=== PATIENT | male | born 1985 | race Caucasian/White ===

== ENCOUNTER 2016-07-09 14:55 | Emergency (ER) | payer OTHER ==
[~2016-07-09] VITALS: Ht 185.4 cm; Wt 96.4 kg
[~2016-07-09 14:55] MED LIST: HYDR-4003 PO
[2016-07-09 15:02] VITALS: BP 128/89; PULSE 64; RESP 16; O2SAT 99
[2016-07-09 15:57] LABS: BASOPHILS % (AUTO) 0.3 % (0-3); EOSINOPHILS % (AUTO) 0.3 % (0-5); MONOCYTES % (AUTO) 6.7 % (4-12); Mean Corpuscular Hemoglobin 29.8 pg (27.0-35.0); Mean Corpuscular Volume 83.8 fL (81-100); NEUTROPHILS % (AUTO) 69.8 % (40-74); Platelet Count 273 bil/L (150-400)
[2016-07-09 16:20] LABS: Magnesium 2.3 mg/dL (1.6-2.6)
--- NOTE | 2016-07-09 16:35 | ED.REPORT ---
HPI-General Illness Date of Service July 09, 2016 ED Provider: Dr. Damon 31 y/o male with a hx of scoliosis presents to the ED complaining of malaise, onset this morning. The pt was in [place] 5 days ago where he was found facedown in a parking lot and was given CPR. He was kept overnight and treated for dehydration and heat stroke at a hospital there. The pt reports he had been outside for approximately 11 hours but was taking fluids all day. He states he remembers everything going blank and then finding himself in the hospital. He can't recall what happened prior to his arrival to the ED in [place]. 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 Since returning to [place] yesterday, pt reports feeling hot, intermittent blurry vision, intermittent nausea, pressure behind his eyes, subjective fever and myalgia. He states he is experiencing cold intolerance. As per the mother, he was also complaining of flu-like sx this morning. Nursing Notes Stated Complaint: POSSIBLE SUN POISONING Chief Complaint: General Complaint Nursing Notes Reviewed: Yes Allergies: Coded Allergies: codeine (Verified Allergy, Unknown, 07/09/16) tramadol (Verified Allergy, Unknown, 07/09/16) Scheduled PRN Hydrocodone-Acetaminophen 5-325 mg (Hydrocodone-Acetaminophen 5-325 mg) 1 Each Tablet 1-2 TABLET PO Q4H PRN PRN For Pain General Time Seen by MD: 16:35 Chief Complaint Not feeling well Hx Obtained From: Patient Arrived By: Walk-in Sudden in Onset?: No Onset Occurred: Yesterday Symptom Duration: Since onset Severity: Current: No pain currently Severity: Maximum: No pain Recent Healthcare: Recent doctor visit Similar Sx Previous: No Past Medical History Past Medical History Scoliosis Past Surgical History None reported Smoking History Current Every Day Smoker Social History Alcohol Use: Denies alcohol use Drug Use: In recovery (Over a year) Other Social History: Good social support Ambulatory Status Independent Review of Systems Reports: Pressure behind his eyes Full Review of Systems Constitutional: Reports: Chills, Fever, Malaise GI: Reports: Nausea, Denies: Vomiting Skin: Reports Diaphoresis Neurologic: Reports: Vision change Complete sys rev & neg: except as marked. Physical Exam Vital Signs Vital Signs Date Time Temp Pulse Resp B/P Pulse Ox O2 Delivery O2 Flow Rate FiO2 07/09/16 15:02 36.7 64 16 128/89 99 Room Air Initial VS: Reviewed Head / Eyes: Atraumatic, Normocephalic, PERRL ENT: Mucous membranes moist, Conjunctiva normal, No scleral icterus Neck: Supple, Non-tender, Full range of motion Respiratory: Breath sounds normal, Clear to auscultation, No respiratory distress Cardiovascular: Regular rate & rhythm, Heart sounds normal, Intact distal pulses Abdomen / GI: Soft, Non-tender, No guarding, No rebound, No distention Extremities: Vascular intact, Neuro intact, No swelling, No tenderness Skin: Warm, Dry, No cyanosis Neurologic: Alert, Oriented, Nonfocal Psychiatric: Mood/affect normal, Behavior normal, Normal thought content General/Constitutional: Awake, Alert, No acute distress, Well appearing, Cooperative Skin: Atraumatic, Warm, Dry Moderate sunburn without blistering over the neck and shoulders. Interpretation & Diagnostics Lab Results Interpretation Result Diagram: 07/09/16 1535 07/09/16 1535 Test 07/09/16 15:35 07/09/16 15:54 White Blood Count 9.6th/mm3 (3.8-10.1) Red Blood Count 5.37mil/mm3 (4.40-5.80) Hemoglobin 16.0g/dL (13.8-17.2) Hematocrit 45.0% (41.0-50.0) Mean Corpuscular Volume 83.8fL (81-100) Mean Corpuscular Hemoglobin 29.8pg (27.0-35.0) Mean Corpuscular Hemoglobin Concent 35.6% (32.0-37.0) Red Cell Distribution Width 13.2% (12.3-15.4) Platelet Count 273bil/L (150-400) Neutrophils (%) (Auto) 69.8% (40-74) Lymphocytes (%) (Auto) 22.6% (14-46) Monocytes (%) (Auto) 6.7% (4-12) Eosinophils (%) (Auto) 0.3% (0-5) Basophils (%) (Auto) 0.3% (0-3) Sodium Level 144mEq/L (134-144) Potassium Level 4.0mEq/L (3.5-5.2) Chloride Level 106mEq/L (97-108) Carbon Dioxide Level 24mmol/L (18-29) Blood Urea Nitrogen 4mg/dL (6-20) Creatinine 0.77mg/dL (0.76-1.27) Estimat Glomerular Filtration Rate 125mL/min (>59) Glucose Level 95mg/dL (60-99) Calcium Level 9.5mg/dL (8.5-10.1) Magnesium Level 2.3mg/dL (1.6-2.6) Total Bilirubin 1.1mg/dL (0.0-1.2) Aspartate Amino Transf (AST/SGOT) 30U/L (0-50) Alanine Aminotransferase (ALT/SGPT) 50U/L (0-44) Alkaline Phosphatase 70U/L (25-150) Total Protein 7.5g/dL (6.4-8.4) Albumin 4.5g/dL (3.4-5.0) Lipase 55U/L (13-60) Hold George Top Tube Received (Received) Re-Eval/Medical Decision Time of Eval: 16:45 Re-Evaluation/Progress Note: Rechecked pt. Discussed lab results and diagnosis. Informed the pt of the plan to discharge. Pt understands and agrees with plan. F/U instructions and RTER warning given. All questions addressed. Counseled Regarding: Diagnosis, Lab results, Need for follow-up, When/why to return to ED Discharge & Departure Primary Impression: Fatigue Fatigue type: other Qualified Code: R53.83 - Other fatigue Disposition: Home Discharge Condition All VS Reviewed: Yes Condition: Stable Additional Instructions: Your labs were reassuring. Drink plenty of fluids, especially if your urine is dark yellow. I suspect your symptoms are still a result of your body recovering from the sunstroke and the sun burn. Time should help, likely more than anything I can do. I hope you feel better within a few days. Thank you for letting me take care of you today. Referrals: OTHER,PHYSICIAN (PCP) (Family) Scribe Attestation Portions of this note were transcribed by Lan Roper. I, , personally performed the history, physical exam and medical decision-making;I reviewed and confirmed the accuracy of the information in the transcribed note. Signed by Liliana Cabezas. 07/09/16 1728 Jael Damon MD July 09, 2016 16:35 Lan Roper July 09, 2016 16:54
[2016-07-09 17:29] VITALS: BP 136/82; PULSE 75; RESP 14; O2SAT 100
== END 2016-07-09 17:30 | disposition home or self-care (01) ==
LOC: SED 14:55
DX: R53.83 Other fatigue (principal); F17.200 Nicotine dependence, unspecified, uncomplicated; Z88.5 Allergy status to narcotic agent; Z88.8 Allergy status to other drugs, medicaments and biological substances

== ENCOUNTER 2016-08-05 14:18 | Emergency (ER) | payer OTHER ==
[~2016-08-05] VITALS: Ht 185.4 cm; Wt 93.1 kg
[2016-08-05 14:20] VITALS: BP 141/95; PULSE 94; RESP 16; O2SAT 98
--- NOTE | 2016-08-05 15:19 | ED.REPORT ---
HPI-Neck Pain Free Text HPI Notes Aug 05, 2016 ED Provider: Jael Damon MD Pt is a 31 y/o male presenting to the ED c/o neck pain onset yesterday. 2 days ago, the patient was working outside and spent the day doing heavy lifting and exercise. Yesterday, the patient was lying down and tried to move and experienced a stiff painful neck with radiation to the shoulders. He has been trying Ibuprofen and range of motion exercises without much relief so he decided to be seen. Pt denies fever, chills, nausea, vomiting, headache. Nursing Notes Stated Complaint: NECK AND SHOULDER PAIN Chief Complaint: General Complaint Nursing Notes Reviewed: Yes Allergies: Coded Allergies: codeine (Verified Allergy, Unknown, 08/05/16) tramadol (Verified Allergy, Unknown, 08/05/16) Uncoded Allergies: PENICILLIN (Allergy, Intermediate, emesis, 08/05/16) Scheduled PRN Diazepam (Diazepam) 5 Mg Tablet 5 MG PO TID PRN PRN muscle spasm Hydrocodone-Acetaminophen 5-325 mg (Hydrocodone-Acetaminophen 5-325 mg) 1 Each Tablet 1-2 TABLET PO Q4H PRN PRN For Pain Naproxen (Naproxen) 500 Mg Tab 500 MG PO BID PRN PRN For Pain oxyCODONE-Acetaminophen 5-325 mg (oxyCODONE-Acetaminophen 5-325 mg) 1 Each Tablet 1 TAB PO Q4H PRN PRN For Pain General Time Seen by Provider: 15:21 Chief Complaint Neck pain Hx Obtained From: Patient Arrived By: Walk-in Sudden in Onset?: Yes Onset Occurred: Yesterday Symptom Duration: Since onset Progression Since Onset: Constant Caused by: Twisting / turning neck Quality: Painful Severity: Current: Moderate Severity: Maximum: Moderate Recent Healthcare: No recent doctor visit, No recent hospitalization Similar Sx Previous: No Past Medical History Past Medical History Scoliosis Past Surgical History None reported Smoking History Current Every Day Smoker Social History Alcohol Use: Denies alcohol use Drug Use: In recovery Other Social History: Good social support Ambulatory Status Independent Review of Systems Constitutional: Denies: Chills, Fever Respiratory: Denies: Non-productive cough, Shortness of breath Cardiovascular: Denies: Chest pain, Dyspnea on exertion GI: Denies: Abdominal pain, Diarrhea, Nausea, Vomiting Musculoskeletal: Reports: Joint pain, Neck pain Neurologic: Denies: Headache, Lightheaded Complete sys rev & neg: except as marked. Physical Exam Initial Vital Signs Vital Signs (First) Date Time Temp Pulse Resp B/P Pulse Ox O2 Delivery O2 Flow Rate FiO2 08/05/16 14:20 36.8 94 16 141/95 98 Room Air Initial VS: Reviewed, Vital signs normal ENT: Mucous membranes moist, Conjunctiva normal, No scleral icterus Respiratory: Breath sounds normal, Clear to auscultation, No respiratory distress Cardiovascular: Regular rate & rhythm, Heart sounds normal, Intact distal pulses Abdomen / GI: Soft, Non-tender Extremities: Vascular intact, Neuro intact, No swelling, No tenderness Skin: Warm, Dry, No cyanosis Psychiatric: Mood/affect normal, Behavior normal, Normal thought content Neck: Atraumatic, Supple, No midline vertebral tend Bilateral trapezius spasm, increased on left Neurologic: Oriented X3, Speech NL, No motor deficits, No sensory deficits, CN II - XII intact, Cerebellar NL, Memory NL, Gait NL Arm sensation intact bilat Head / Eyes: Atraumatic, Normocephalic, PERRL, No photophobia Point tenderness about the occiput insertions bilaterally, increased on left Re-Eval/Medical Decision Re-Evaluation/Progress : Time of Eval: 16:14 Re-Evaluation/Progress Note: Pt rechecked. Able to move about much better now after treatment. Informed pt of plan for treatment. Pt understands and agrees with plan for treatment. F/U instructions and RTER warnings given. All questions addressed. Counseled Regarding: Diagnosis, Need for follow-up, When/why to return to ED Discharge & Departure Primary Impression: Acute strain of neck muscle Encounter type: initial encounter Qualified Code: S16.1XXA - Strain of muscle, fascia and tendon at neck level, initial encounter Disposition: Home Discharge Condition All VS Reviewed: Yes Condition: Stable Patient Instructions: Cervical Neck Strain Exercises (GEN) Additional Instructions: Your physical exam and history is consistent with a neck strain. See any evidence of acute cervical disc herniation. Use the soft collar to help with pain control. If it doesn't help then don't use it. Take Ibuprofen at least 3x a day for baseline pain control and Valium up to twice a day for muscle spasm. Take 1-2 Percocet every 6 hours as needed for severe breakthrough pain. You can expect the pain to be worse tomorrow. Return to the emergency department if you experience any new or worsening symptoms, specifically significant numbness of your arms. Follow-up with your primary care doctor next week if your symptoms persist. Thanks for coming back, but we really need to stop meeting in the ER like this;) Referrals: OTHER,PHYSICIAN (PCP) [facility] ED Scribe Statement Portions of this note were transcribed by uSnday Palomino. I, Dr. Damon personally performed the history, physical exam and medical decision-making; I reviewed and confirmed the accuracy of the information in the transcribed note. Signed by Liliana Srivastava, 08/05/16 - 1599 Jael Damon MD Aug 05, 2016 15:19 SUNDAY PALOMINO Aug 05, 2016 15:24
[2016-08-05] MEDS ORDERED: oxyCODONE-Acetamin 5-325 mg Tablet PO ONE (15:30)
[2016-08-05 16:35] VITALS: BP 135/88; PULSE 88; RESP 15; O2SAT 95
[2016-08-05] MEDS ORDERED: OXYC1TAB24 PO (16:35)
[2016-08-05] MEDS ORDERED: NPR500T PO (16:35)
[2016-08-05] MEDS ORDERED: DIAZ5TAB3 PO (16:35)
[2016-08-05 16:38] VITALS: BP 135/88; PULSE 88; RESP 15; O2SAT 95
== END 2016-08-05 16:38 | disposition home or self-care (01) ==
LOC: SED 14:18
DX: S16.1XXA Strain of muscle, fascia and tendon at neck level, initial encounter (principal); X50.0XXA Overexertion from strenuous movement or load, initial encounter; Y93.89 Activity, other specified; Y92.89 Other specified places as the place of occurrence of the external cause; Y99.8 Other external cause status; F17.200 Nicotine dependence, unspecified, uncomplicated; Z88.0 Allergy status to penicillin; Z88.5 Allergy status to narcotic agent; Z88.8 Allergy status to other drugs, medicaments and biological substances
CPT/HCPCS: 96372; 99283; J1885

== ENCOUNTER 2016-09-20 21:01 | Emergency (ER) | payer OTHER ==
[~2016-09-20 21:01] MED LIST changes: +DIAZ5TAB3 PO; +NPR500T PO; +OXYC1TAB24 PO
[2016-09-20 21:05] VITALS: BP 158/83; PULSE 94; RESP 20; O2SAT 100
--- NOTE | 2016-09-20 21:26 | ED.REPORT ---
HPI-Back Pain Under 40 Date of Service Sep 20, 2016 ED Provider: Dr. John Mak The pt is a 31 year old male who presents to the ED c/o increasingly severe mid back pain that radiates into his tailbone onset 4 days ago. He tore a muscle in his back a month ago and irritated the injury earlier this week. Pt takes Ibuprofen during the day and uses Flexeril to get to sleep. He reports associated weakness in legs. His doctor recommended he take less ibuprofen. Pt has tried physical therapy with no relief. Pt denies numbness, nausea, vomiting , bowel/bladder dysfunction, dizziness, headache, lightheadedness, incontinence or any other symptoms. Nursing Notes Stated Complaint: BACK PAIN Chief Complaint: Back Pain or Injury Nursing Notes Reviewed: Yes Allergies: Coded Allergies: codeine (Verified Allergy, Unknown, 09/20/16) tramadol (Verified Allergy, Unknown, 09/20/16) Uncoded Allergies: PENICILLIN (Allergy, Intermediate, emesis, 08/05/16) Scheduled PRN Diazepam (Diazepam) 5 Mg Tablet 5 MG PO TID PRN PRN muscle spasm Hydrocodone-Acetaminophen 5-325 mg (Hydrocodone-Acetaminophen 5-325 mg) 1 Each Tablet 1-2 TABLET PO Q4H PRN PRN For Pain Naproxen (Naproxen) 500 Mg Tab 500 MG PO BID PRN PRN For Pain oxyCODONE-Acetaminophen 5-325 mg (oxyCODONE-Acetaminophen 5-325 mg) 1 Each Tablet 1 TAB PO Q4H PRN PRN For Pain General Time Seen by MD: 21:25 Chief Complaint Back pain Hx Obtained From: Patient Arrived By: Walk-in Sudden in Onset?: Yes Onset Occurred: 4 days ago Symptom Duration: Since onset Caused by: Aggravated old injury Location: : Spinal lumbar area Quality: Painful Severity: Current: Severe Recent Healthcare: No recent doctor visit, No recent hospitalization Similar Sx Previous: Yes Past Medical History Past Medical History Scoliosis Past Surgical History None reported Smoking History Current Every Day Smoker Social History Alcohol Use: Denies alcohol use Drug Use: In recovery Other Social History: Good social support Ambulatory Status Independent Review of Systems Constitutional: Denies: Chills, Fever GI: Denies: Nausea, Vomiting Male: Denies Incontinence Musculoskeletal: Reports: Back pain, Denies: Extremity pain, Joint pain Neurologic: Reports: Weakness, Denies: Bladder dysfunction, Bowel dysfunction, Dizziness, Headache, Lightheaded, Numbness Complete sys rev & neg: except as marked. Physical Exam Initial Vital Signs Vital Signs (First) Date Time Temp Pulse Resp B/P Pulse Ox O2 Delivery O2 Flow Rate FiO2 09/20/16 21:05 36.7 94 20 158/83 100 Room Air Initial VS: Reviewed General/Constitutional: Awake, Alert, Cooperative Flank / Spine / Paraspinal: Positive: Lumbar spine tender... tender lumbar spine L3 L4 region neurovascularly intact Neurologic: Oriented X3, Speech NL, No motor deficits Lower Extremity / Pelvis / MS: Atraumatic, Full range of motion, No deformity Head / Eyes: Atraumatic, Normocephalic ENT: Atraumatic, Mucous membranes moist Upper Extremity / MS: Atraumatic, Full range of motion, No erythema Wrist / Hand: Atraumatic, Full range of motion, No deformity Ankle / Foot: Atraumatic, Full range of motion, No deformity Skin: Atraumatic, Color NL, No rash Interpretation & Diagnostics Interpretation & Diagnostics: LUMBAR SPINE X-RAY IMPRESSION: no acute abnormalities Re-Eval/Medical Decision Med Decision/Clinical Course Reassuring x-rays. Adequate pain control with Toradol. Short course of Naprosyn for moderate pain. Short course of short-acting opiate for severe pain. Routine opiate warnings given. Recommend close outpatient follow-up. Re-Evaluation/Progress : Time of Eval: 22:15 Re-Evaluation/Progress Note: Pt rechecked. Informed pt of normal x-ray results. Plan for discharge and follow up. Pt understands and agrees with plan. All questions addressed. Counseled Regarding: Diagnosis, Lab results, Need for follow-up, When/why to return to ED Discharge & Departure Impression: Primary Impression: Low back pain Chronicity: unspecified Back pain laterality: bilateral Sciatica presence: without sciatica Qualified Code: M54.5 - Low back pain Disposition: Home All VS Reviewed: Yes Condition: Stable Patient Instructions: Acute Low Back Pain (ED) Additional Instructions: Thank you for entrusting us with your care today. Your x-ray was reassuring. Take 1 Percocet every 6 hrs for pain and naproxen 2x/daily. Do not drive or drink alcohol while consuming Percocet. Follow up with primary care this week. Return to the Emergency Department if you experience any new or worsening symptoms. I hope you feel better soon! Referrals: OTHER,PHYSICIAN (PCP) Chuck Goodson MD Attestation Portion of this note were transcribed by Joann Vang. I, Dr. Mak, personally performed the history, physical exam, and medical decision-making: I reviewed and confirmed the accuracy for the information in the transcribed note. Signed by: rodolfo Cosby, 09/20/16 2200 copies to: OTHER,PHYSICIAN; Chuck Goodson MD, Todd P DO Sep 20, 2016 21:26 Joann Vang Sep 20, 2016 21:33
[2016-09-20] MEDS ORDERED: oxyCODONE-Acetamin 5-325 mg Tablet PO ONE (21:35)
[2016-09-20] MEDS ORDERED: _oxyCODONE/APAP 5-325 mg Tablet PO PRN (21:35)
[2016-09-20 22:35] VITALS: BP 146/91; PULSE 88; RESP 16; O2SAT 98
--- NOTE | 2016-09-21 11:52 | DRSVH ---
PROCEDURE: X-RAY LUMBAR SPINE, 2 OR 3 VIEW INDICATIONS: fall, L3 region pain and tender TECHNIQUE: 3 views of the lumbar spine were acquired. COMPARISON: None. FINDINGS: Bones: 5 [id number] vertebrae are present. There is normal bony alignment. No vertebral body c ompression fractures. No suspicious bony lesions. Trace spondylolisthesis L5-S1 with possible pars interarticularis defect. Soft tissues: Overlying bowel gas pattern is normal. No suspicious soft tissue calcifications. IMPRESSION: Trace spondylolisthesis at the L5-S1 level with possible pars interarticularis defect. I f indicated oblique views could be performed. Dictated by: Robbie CARRERO Interpreted: Sanjay Ellison MD on 09/21/2016 at 8:41 Approved by: Sanjay Ellison M.D. on 09/21/2016 at 11:50
== END 2016-09-20 22:35 | disposition home or self-care (01) ==
LOC: SED 21:01
DX: M54.5 Low back pain (principal); F17.200 Nicotine dependence, unspecified, uncomplicated; Z88.5 Allergy status to narcotic agent
CPT/HCPCS: 72100; 96372; 99284; J1885

== ENCOUNTER 2016-11-15 16:21 | Emergency (ER) | payer OTHER ==
[~2016-11-15] VITALS: Ht 188 cm; Wt 96.4 kg
[2016-11-15 16:24] VITALS: BP 134/79; PULSE 78; RESP 16; O2SAT 100
--- NOTE | 2016-11-15 17:09 | ED.REPORT ---
HPI-Extremity Problem Lower Date of Service Nov 15, 2016 ED Provider: Ricardo Sharif MD History of Present Illness: 31-year-old male here for bilateral lower extremity swelling and pain. Started a few days ago and has been increasing in pain. Pain is worse in the morning but fairly severe all throughout the day. He states it started with a little rash around his ankles. There would be slightly erythematous small pinpoint dots, that coalesce and now are hyperpigmented macules. Denies any injury. Has no personal history of DVT. Mom and dad do not have history of DVT but his grandparents do. He has no personal history of any blood clotting disorder or diabetes. He denies IV drug use. No fever, nausea or vomiting. Nursing Notes Stated Complaint: SWELLING IN BOTH LEGS/FEET Chief Complaint: Extremity Trauma Nursing Notes Reviewed: Yes Allergies: Coded Allergies: codeine (Verified Allergy, Unknown, 11/15/16) tramadol (Verified Allergy, Unknown, 11/15/16) Uncoded Allergies: PENICILLIN (Allergy, Intermediate, emesis, 08/05/16) Scheduled Cephalexin (Keflex) 500 Mg Capsule 500 MG PO QID Scheduled PRN Diazepam (Diazepam) 5 Mg Tablet 5 MG PO TID PRN PRN muscle spasm Hydrocodone-Acetaminophen 5-325 mg (Hydrocodone-Acetaminophen 5-325 mg) 1 Each Tablet 1-2 TABLET PO Q4H PRN PRN For Pain Naproxen (Naproxen) 500 Mg Tab 500 MG PO BID PRN PRN For Pain oxyCODONE-Acetaminophen 5-325 mg (oxyCODONE-Acetaminophen 5-325 mg) 1 Each Tablet 1 TAB PO Q4H PRN PRN For Pain General Time Seen by MD: 16:57 Chief Complaint Leg injury right, Leg injury left Hx Obtained From: Patient Arrived By: Walk-in Onset Occurred: 4 days ago Location: : Leg left: Leg right Severity: Current: Moderate Severity: Maximum: Moderate Pertinent Negative: Pt denies other symptoms Immunizations: All up to date Recent Healthcare: No recent doctor visit Similar Sx Previous: No Past Medical History Past Medical History Scoliosis Past Surgical History None reported Smoking History Current Every Day Smoker Social History Alcohol Use: Denies alcohol use Drug Use: In recovery Other Social History: Good social support Ambulatory Status Independent Review of Systems Basic Review of Systems Eyes: Vision NL, No discharge ENT: Hearing NL, No pain, No nasal congestion, No pharyngeal pain Respiratory: No shortness of breath, No cough, No wheeze Cardiovascular: No chest pain, No dyspnea on exertion, No orthopnea, No parox noct dyspnea, No palpitations GI: No abdominal pain, No anorexia, No nausea, No vomiting Allergy / Immune: No allergy Psychiatric: Normal thought content Musculoskeletal: Reports: Extremity pain, Extremity swelling Complete sys rev & neg: except as marked. Physical Exam Initial Vital Signs Vital Signs (First) Date Time Temp Pulse Resp B/P Pulse Ox O2 Delivery O2 Flow Rate FiO2 11/15/16 16:24 36.6 78 16 134/79 100 Room Air Initial VS: Reviewed, Vital signs normal General/Constitutional: Well-developed, Well-nourished Head / Eyes: Atraumatic, Normocephalic, PERRL ENT: Mucous membranes moist, Conjunctiva normal, No scleral icterus Neck: Supple, Non-tender, Full range of motion Respiratory: Breath sounds normal, Clear to auscultation, No respiratory distress Cardiovascular: Regular rate & rhythm, Heart sounds normal, Intact distal pulses Abdomen / GI: Soft, Non-tender, No guarding, No rebound, No distention Skin: Warm, Dry, No cyanosis Neurologic: Alert, Oriented, Nonfocal Psychiatric: Mood/affect normal, Behavior normal, Normal thought content Lower Extremity / Pelvis / MS: Full range of motion, No deformity, Neurologic intact, Vascular intact, No ligamentous injury Bilateral lower extremity with swelling up to mid upper tib-fib area. 2+ pitting edema. Erythema surrounding foot and ankle progresses longterm up lower leg. Generalized tenderness. Pedal pulse present. Rash / Lesion Notes: Small hyperpigmented pinpoint macules multiple Coalesced into a larger Macule. Present on anterior ankles and foot. Interpretation & Diagnostics Lab Results Interpretation Result Diagram: 11/15/16 1735 11/15/16 1735 Test 11/15/16 17:35 White Blood Count 6.1th/mm3 (3.8-10.1) Red Blood Count 4.87mil/mm3 (4.40-5.80) Hemoglobin 14.8g/dL (13.8-17.2) Hematocrit 42.1% (41.0-50.0) Mean Corpuscular Volume 86.4fL (81-100) Mean Corpuscular Hemoglobin 30.4pg (27.0-35.0) Mean Corpuscular Hemoglobin Concent 35.2% (32.0-37.0) Red Cell Distribution Width 12.7% (12.3-15.4) Platelet Count 248bil/L (150-400) Neutrophils (%) (Auto) 50.1% (40-74) Lymphocytes (%) (Auto) 38.7% (14-46) Monocytes (%) (Auto) 8.2% (4-12) Eosinophils (%) (Auto) 2.3% (0-5) Basophils (%) (Auto) 0.5% (0-3) Sodium Level 139mEq/L (134-144) Potassium Level 4.0mEq/L (3.5-5.2) Chloride Level 103mEq/L (97-108) Carbon Dioxide Level 23mmol/L (18-29) Blood Urea Nitrogen 14mg/dL (6-20) Creatinine 1.10mg/dL (0.76-1.27) Estimat Glomerular Filtration Rate 83mL/min (>59) Glucose Level 103mg/dL (60-99) Calcium Level 9.0mg/dL (8.5-10.1) Total Bilirubin 1.2mg/dL (0.0-1.2) Aspartate Amino Transf (AST/SGOT) 26U/L (0-50) Alanine Aminotransferase (ALT/SGPT) 37U/L (0-44) Alkaline Phosphatase 75U/L (25-150) Pro-B-Type Natriuretic Peptide 28.86pg/mL (0-86) Total Protein 7.0g/dL (6.4-8.4) Albumin 4.3g/dL (3.4-5.0) Hold George Top Tube Received (Received) US Soft Tissue/Musculoskeletal s: Amada Archuleta [facility] Date of Service: 11/15/16 6254 PROCEDURE: US VENOUS LEG DUPLEX BILATERAL INDICATIONS: swelling BLE TECHNIQUE: Real-time imaging, as well as color and pulse Doppler interrogation, were performed of the deep veins of both legs from the inguinal ligament to the popliteal fossa. COMPARISON: None. FINDINGS: The deep veins are normally compressible, and free of intraluminal thrombus. Color and pulse Doppler demonstrate normal phasic intravascular flow. There is normal augmentation response to distal compression maneuver. IMPRESSION: No evidence of bilateral lower extremity DVT. Re-Eval/Medical Decision Med Decision/Clinical Course Techs states that ultrasounds of lower extremities is negative. Radiology results are not back yet. We will treat for cellulitis of salma TOMPKINS and have him follow-up with his PCP. Patient was tired of waiting and decided to leave before getting his Rocephin injection. I asked them to wait for at least the first dose of oral Keflex., He proceeded to walk out the door. I did give his prescription and discharge paperwork to his father who was with him Discharge & Departure Shift Change Sign-Out Laboratory Evaluation: Lab evaluation discussed Imaging Studies: Imaging discussed Procedures: Results discussed Response to Therapy: Improved Impression: Primary Impression: Cellulitis and abscess of lower extremity Disposition: Home Discharge Condition All VS Reviewed: Yes Condition: Stable Patient Instructions: Cellulitis (ED) Additional Instructions: Monitor redness and swelling, return immediately if it worsens or you get fevers. Take antibiotic as prescribed. Follow-up with your PCP on Wednesday as planned. Referrals: OTHER,PHYSICIAN (PCP) (Family) EDSupervising Provider for APC: Artem Smith MD, Linnea K ARNP Nov 15, 2016 17:09
[2016-11-15 17:40] LABS: BASOPHILS % (AUTO) 0.5 % (0-3); EOSINOPHILS % (AUTO) 2.3 % (0-5); MONOCYTES % (AUTO) 8.2 % (4-12); Mean Corpuscular Hemoglobin 30.4 pg (27.0-35.0); Mean Corpuscular Volume 86.4 fL (81-100); NEUTROPHILS % (AUTO) 50.1 % (40-74); Platelet Count 248 bil/L (150-400)
[2016-11-15] MEDS ORDERED: CEPH-512 PO (19:58)
[2016-11-15] MEDS ORDERED: cefTRIAXone Inj 1,000 MG, Lidocaine PF 1% Inj 2.1 ML in Syringe 0 EACH IM ONE (20:00)
--- NOTE | 2016-11-15 20:27 | DRSVH ---
PROCEDURE: US VENOUS LEG DUPLEX BILATERAL INDICATIONS: swelling BLE TECHNIQUE: Real-time imaging, as well as color and pulse Doppler interrogation, were performed of the deep veins of both legs from the inguinal ligament to the popliteal fossa. COMPARISON: None. FINDINGS: The deep veins are normally compressible, and free of intraluminal thrombus. Color and pu lse Doppler demonstrate normal phasic intravascular flow. There is normal augmentation response to d istal compression maneuver. IMPRESSION: No evidence of bilateral lower extremity DVT. Dictated by: Ginger Kuo M.D. on 11/15/2016 at 20:25 Approved by: Ginger Kuo M.D. on 11/15/2016 at 20:25
== END 2016-11-15 20:41 | disposition home or self-care (01) ==
LOC: SED 16:21
DX: L03.115 Cellulitis of right lower limb (principal); L03.116 Cellulitis of left lower limb; L02.415 Cutaneous abscess of right lower limb; L02.416 Cutaneous abscess of left lower limb; F17.200 Nicotine dependence, unspecified, uncomplicated; Z88.5 Allergy status to narcotic agent